=== PATIENT | male | born 1985 | race Caucasian/White ===

== ENCOUNTER → 2017-01-06 | Outpatient (CLI) | payer OTHER ==
--- NOTE | 2017-01-06 16:34 | PN ---
DATE OF SERVICE: 01/06/2017 This patient is a 31-year-old gentleman who has been followed in the sleep center for sleepiness, difficulties waking up after sleep, and loud snoring. Patient was evaluated in the sleep center about 1-1/2 years ago. At that time he was recommended sleep studies, but he did not proceed with a sleep study at that time. At present his sleep schedule is in about the same range as before: On working days from 3 a.m. until noon or 2 p.m., and on weekends from 4 a.m. until 3 p.m., and he gets out of bed around 4:30 p.m. His usual work schedule is from around 9:45 a.m. until 9 p.m. [place] Sleepiness Scale today is 5. Patient usually does not wake up from sleep at all. It is very difficult to wake him up after sleep. He may talk to his family for a few seconds and then he continues to fall asleep and he does not remember episodes of talking to his family. MEDICATIONS: Adderall 20 mg 2 times a day. PHYSICAL EXAMINATION: This is a 31-year-old gentleman without distress. VITAL SIGNS: BP 126/74, HR 97, RR 16. Height 6 feet 2-1/2 inches. Weight 201. BMI 25.4. Neck 15-1/2 inches in circumference. Temperature 98.0. Oxygen saturation at room air 96%. HEENT: PERRLA, EOMI. Evaluation of oropharynx showed tongue protrudes midline. Moderately low position of soft palate. NECK: Supple. No JVD. Thyroid is not palpable. LUNGS: Clear to percussion and to auscultation. Good air exchange. No wheezing or rhonchi. HEART: Some murmurs on aorta and pulmonary after valve replacement. ABDOMEN: Soft and nontender. Bowel sounds are present. No organomegaly appreciated. EXTREMITIES: No clubbing or cyanosis. 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 Cranial nerves 2 to 7 intact. There is no fasciculation or atrophy noted. No focal deficits observed. IMPRESSION: 1. Snoring, moderately low position of soft palate; rule out obstructive sleep apnea, but patient does not wake up from sleep. 2. Difficulties with awakening patient from sleep during the night and also after sleep during the day. 3. Status post aortic valve replacement with patient's pulmonary valve. 4. Status post pulmonary valve replacement with pig valve. 5. Attention deficit disorder. Patient is on treatment with Adderall 20 mg 2 times a day. 6. Sleep delay syndrome possibly associated with patient's work schedule until 9 p.m. 7. Patient has continued smoking for about 11 years now. 8. Patient continues to consume 2 beers at night time. PLAN: 1. Polysomnography for evaluation of patient's breathing during sleep. If polysomnography does not show significant abnormalities of respiration, we will continue with multiple sleep latency test for objective evaluation of patient's sleepiness during the day. No Adderall during the daytime during the testing period. 2. Sleep hygiene with regular time in bed for at least 8 hours. 3. No driving if feeling any sleepiness. 4. Bright sunlight exposure in the morning. No bright light exposure in the evening. Thank you very much for allowing me to participate in the management of your patient. Sincerely, Hu Nuno MD, PhD, FAASM. Diplomat of [place] [employer], Sleep Medicine Board by [employer], [employer]
== END | disposition home or self-care (01) ==
LOC: SLEEP 13:40
PROVIDERS: ATTEND Internal Medicine
DX: G47.33 Obstructive sleep apnea (adult) (pediatric) (principal); Z95.4 Presence of other heart-valve replacement; F98.8 Other specified behavioral and emotional disorders with onset usually occurring in childhood and adolescence; Z79.899 Other long term (current) drug therapy; G47.21 Circadian rhythm sleep disorder, delayed sleep phase type; F17.210 Nicotine dependence, cigarettes, uncomplicated; Z72.89 Other problems related to lifestyle

== ENCOUNTER → 2017-03-10 | Outpatient (CLI) | payer OTHER ==
--- NOTE | 2017-03-10 13:08 | PN ---
DATE OF SERVICE: 03/10/2017 A 32-year-old gentleman who has been followed in the Sleep Center to discuss results of his sleep studies and plan of treatment. 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 When he goes back from work, he does not go to bed until 3 a.m. until 9 a.m. on working days and from 4 a.m. until noon on weekend. According to the patient if he sleeps longer, he may feel worse. Diagnostic sleep study, polysomnogram did not show any significant respiratory abnormalities during the sleep apnea-hypopnea index of 0, oxygen saturation is normal, but patient had only 1% of stage REM. Amount of delta sleep was acceptable, 11.2%. Multiple sleep latency test on the following day showed mean sleep latency 9.8 minutes with one REM sleep documented at 5 nap. MEDICATIONS: Adderall. During physical exam, patient is in no distress. BP 159/90, HR 95, RR 16. Height 6, 2. Weight 208. BMI 26.7. Temperature 97.9. Oxygen saturation at room air 97%,. Practically normal position of the soft palate. HEART: Systolic murmur on apex, aorta and pulmonary artery. NECK: Supple. No JVD, Thyroid is not palpable. LUNGS: Clear to percussion and to auscultation. Good air exchange. No wheezing or rhonchi. ABDOMEN: Soft and nontender. Bowel sounds are present. No organomegaly appreciated. 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 Cranial nerves 2 to 7 intact. There is no fasciculation or atrophy noted. No focal deficits observed. IMPRESSION: 1. No significant respiratory abnormalities have been documented during the sleep study. Normal oxygenation during the sleep, intermittent snoring has been documented. 2. I believe patient has insufficient sleep, sleeps only 6 hours on working days. 3. Sleep delay syndrome. Patient goes to bed at 3 or 4 a.m. practically every day. 4. Alcohol consumption up to 2 drinks of vodka per night which also may disrupt sleep on the second part of the night. 5. History of attention deficit disorder. 6. History of aortic stenosis, status post surgical treatment with replacement of aortic valve and pulmonary valve have been replaced with a donor valve. PLAN: 1. As much as possible exposure to the sunlight in the morning after awakenings at 9 a.m. Preferably go outside for one hour. If there is no sun, patient could use light machine. 2. Patient will try to go to be earlier at 11 p.m. every night. 3. No bright light exposure in the evening. 4. No driving if feeling any sleepiness. 5. Slowly decrease amount of alcohol at nighttime. Thank you very much for referring this patient for evaluation. Sincerely, Hu Nuno MD, PhD, FAASM Diplomat of [place] [employer], Sleep Medicine Board by [place] [employer] Motorcycle Riding Instructor of [facility] [place]
== END | disposition home or self-care (01) ==
LOC: SLEEP 11:27
PROVIDERS: ATTEND Internal Medicine
DX: G47.33 Obstructive sleep apnea (adult) (pediatric) (principal); G47.21 Circadian rhythm sleep disorder, delayed sleep phase type; F98.8 Other specified behavioral and emotional disorders with onset usually occurring in childhood and adolescence; Z79.899 Other long term (current) drug therapy

== ENCOUNTER 2017-03-12 15:22 | Emergency (ER) | payer OTHER ==
[2017-03-12] MEDS ORDERED: ACETAMINOPHEN TAB 325 MG TAB PO STA (15:52)
[2017-03-12] MEDS ORDERED: SODIUM CHLORIDE 0.9% 500 ML IV STA (15:52)
--- NOTE | 2017-03-12 15:58 | ED ---
General Adult HPI - General Chief complaint: Upper Respiratory Infection Stated complaint: Sore throat/Cough Time Seen by Provider: 03/12/17 15:42 Source: patient, family, RN notes reviewed Mode of arrival: ambulatory Limitations: no limitations - History of Present Illness Initial comments: Chief complaint history of present illness this is a 32-year-old male here with family. The patient reports 7 days ago started off with left earache, and a cough the phlegm is slightly dark at that time but has since subsided. For 2 days of sore throat. Cough is ongoing for 4 days now. Generally fatigued muscle aches and pains nausea today but no vomiting or diarrhea. - Related Data Home Medications Medication Instructions Recorded Confirmed Dextroamphetamine/Amphetamine 20 mg PO BID 03/12/17 03/12/17 [Adderall] Previous Rx's Medication Instructions Recorded Levofloxacin [Levaquin] 500 mg PO DAILY #6 tab 03/12/17 Allergies Allergy/AdvReac Type Severity Reaction Status Date / Time No Known Allergies Allergy Verified 03/12/17 16:20 Review of Systems ROS Statement: Those systems with pertinent positive or pertinent negative responses have been documented in the HPI. Review of systems no complaint of visual acuity changes or headache at this time mild sore throat. No stiff neck. Coughing for 4 days. Without be productive at this time no abdominal pain no nausea earlier but no vomiting. No diarrhea. No rashes. Generalized muscle aches and pains. Patient did not can a flu shot this year. 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 All systems were reviewed past medical problems aortic stenosis. Surgeries include the pulmonary valve was harvested to replace the aortic valve and he had a donated valve for his pulmonary valve. Surgery was 16 years ago. The patient' s family history is negative for cancers. Other surgeries include having had a pin placed in his right hand for a boxer's fracture. His ALLERGIES are seasonal only. He does smoke strongly encouraged to stop drinks alcohol socially. ROS Other: All systems not noted in ROS Statement are negative. Past Medical History Past Medical History: No Reported History Additional Past Medical History / Comment(s): aortic stenosis History of Any Multi-Drug Resistant Organisms: None Reported Past Surgical History: No Surgical Hx Reported Past Psychological History: No Psychological Hx Reported Smoking Status: Current every day smoker Past Alcohol Use History: Daily Past Drug Use History: None Reported General Exam - General Exam Comments Initial Comments: General: The patient is awake and alert, in no distress, complains not feeling well muscle aches and pains. Vital signs shows temperature 99.0 pulse 111 respiratory rate 16 pulse ox 99% room air blood pressure 155/82 Eye: Pupils are equal, round and reactive to light, extra-ocular movements are intact ; there is normal conjunctiva bilaterally. No signs of icterus. Ears, nose, mouth and throat: There are moist mucous membranes and no oral lesions. Minimal redness, no exudate. Neck: The neck is supple, there is no tenderness, no anterior cervical lymphadenopathy. No complaint of neck stiffness. Cardiovascular: Chronic heart rate, 111.. Patient has a loud systolic murmur over the mitral valve area. Respiratory: Lungs are clear to auscultation, respirations are non-labored, breath sounds are equal. No wheezes, stridor, rales, or rhonchi. Gastrointestinal: Soft, non-distended, non-tender abdomen without masses or organomegaly noted. There is no rebound or guarding present. No CVA tenderness. Bowel sounds are unremarkable. Back: There is no tenderness to palpation in the midline. There is no obvious deformity. No rashes noted. Musculoskeletal: Normal ROM, no tenderness, There is no pedal edema. There is no calf tenderness or swelling. Sensation intact. Pulses equal bilaterally 2+. Neurological: No neuro deficits Skin: Skin is warm and dry and no rashes or lesions are noted. Limitations: no limitations Course Vital Signs 03/12/17 03/12/17 03/12/17 15:33 16:33 16:35 Temperature 99.0 F 100.1 F H Pulse Rate 111 H 104 H Respiratory 16 18 18 Rate Blood Pressure 155/82 130/79 O2 Sat by Pulse 99 97 Oximetry Medical Decision Making - Medical Decision Making Medical decision making; patient's white count is 10.6 hemoglobin 16 hematocrit of 46 with a potassium 4.2. BUN 10 creatinine 1.04 the GFR greater than 60. Glucose 121 influenza AB reported to be negative. Chest x-ray was done and reviewed by radiologist his impression is a median sternotomy wires are present. Heart is normal size. Pulmonary vasculature within normal limits. There is focal opacity at the posterior base of the lateral view. No pleural effusion. Focal posterior basilar opacity on the lateral view could represent early pneumonia. As read by Dr. Khoury The patient will be placed on Levaquin 500 one per day for the next 7 days. Told to increase fluids use Tylenol for fever. And follow-up with his family physician. - Lab Data Result diagrams: 03/12/17 16:30 03/12/17 16:30 Lab Results 03/12/17 03/12/17 03/12/17 Range/Units 16:30 16:30 16:30 WBC 10.6 (3.8-10.6) k/uL RBC 4.93 (4.30-5.90) m/uL Hgb 16.1 (13.0-17.5) gm/dL Hct 46.5 (39.0-53.0) % MCV 94.3 (80.0-100.0) fL MCH 32.8 (25.0-35.0) pg MCHC 34.7 (31.0-37.0) g/dL RDW 13.6 (11.5-15.5) % Plt Count 214 (150-450) k/uL Neutrophils % 82 % Lymphocytes % 11 % Monocytes % 4 % Eosinophils % 2 % Basophils % 0 % Neutrophils # 8.7 H (1.3-7.7) k/uL Lymphocytes # 1.1 (1.0-4.8) k/uL Monocytes # 0.4 (0-1.0) k/uL Eosinophils # 0.3 (0-0.7) k/uL Basophils # 0.0 (0-0.2) k/uL Sodium 138 (137-145) mmol/L Potassium 4.2 (3.5-5.1) mmol/L Chloride 100 (98-107) mmol/L Carbon Dioxide 27 (22-30) mmol/L Anion Gap 11 mmol/L BUN 10 (9-20) mg/dL Creatinine 1.04 (0.66-1.25) mg/dL Est GFR (MDRD) Af Amer >60 (>60 ml/min/1.73 sqM) Est GFR (MDRD) Non-Af >60 (>60 ml/min/1.73 sqM) Glucose 121 H (74-99) mg/dL Calcium 9.9 (8.4-10.2) mg/dL Influenza Type A RNA Not Detected (Not Detectd) Influenza Type B (PCR) Not Detected (Not Detectd) Disposition Clinical Impression: Pneumonia Disposition: HOME SELF-CARE Condition: Fair Instructions: Community Acquired Pneumonia (ED) Prescriptions: Levofloxacin [Levaquin] 500 mg PO DAILY #6 tab Referrals: Yan Hartman MD [Primary Care Provider] - 1-2 days Time of Disposition: 17:20
[2017-03-12 16:34] VITALS: RESP 18
[2017-03-12 16:43] LABS: Basophils % (A) 0 %; CH 33.8; Eosinophils # (A) 0.3 k/uL (0-0.7); Eosinophils % (A) 2 %; HCT 46.5 % (39.0-53.0); HDW 2.71; HGB 16.1 gm/dL (13.0-17.5); Luc # (Auto) 0.11; Luc % (Auto) 1; Lymphocytes # (A) 1.1 k/uL (1.0-4.8); Lymphocytes % (A) 11 %; MCH 32.8 pg (25.0-35.0); MCHC 34.7 g/dL (31.0-37.0); MCV 94.3 fL (80.0-100.0); Mean Platelet Volume 6.6; Monocytes # (A) 0.4 k/uL (0-1.0); Monocytes % (A) 4 %; Neutrophils # (A) 8.7 k/uL (1.3-7.7); Neutrophils % (A) 82 %; RBC 4.93 m/uL (4.30-5.90); RDW 13.6 % (11.5-15.5); WBC 10.6 k/uL (3.8-10.6); WBC (Perox) 9.85
[2017-03-12 16:52] LABS: Anion Gap 11 mmol/L; Blood Urea Nitrogen 10 mg/dL (9-20); Calcium 9.9 mg/dL (8.4-10.2); Carbon Dioxide 27 mmol/L (22-30); Chloride 100 mmol/L (98-107); Glucose 121 mg/dL (74-99); Non-African American GFR(MDRD) >60 (>60 ml/min/1.73 sqM); Potassium 4.2 mmol/L (3.5-5.1); Sodium 138 mmol/L (137-145)
--- NOTE | 2017-03-12 16:55 | XR ---
EXAMINATION TYPE: XR chest 2V DATE OF EXAM: 03/12/2017 4:40 PM COMPARISON: None HISTORY: 32-year-old male with fever and cough TECHNIQUE: PA and lateral views FINDINGS: Median sternotomy wires are present. Heart is normal size. Pulmonary vasculature within normal limits . There is focal opacity at the posterior base on the lateral view. No pleural effusion. IMPRESSION: Focal posterior basilar opacity on the lateral view could represent early pneumonia.
[2017-03-12] MEDS ORDERED: LEVOFLOXACIN 500 MG TAB PO STA (17:18)
[2017-03-12 17:35] VITALS: BP 145/75; PULSE 96; TEMP 99.9
== END 2017-03-12 17:35 | disposition home or self-care (01) ==
LOC: EC 15:22
DX: J18.9 Pneumonia, unspecified organism (principal); R11.0 Nausea; F17.200 Nicotine dependence, unspecified, uncomplicated; Z79.899 Other long term (current) drug therapy
CPT/HCPCS: 36415; 71020; 80048; 85025; 87502; 96360; 99283

== ENCOUNTER → 2017-08-30 | Outpatient (CLI) | payer OTHER ==
--- NOTE | 2017-08-31 12:34 | ECHOF ---
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 This was a technically adequate study. The left ventricular size is normal. There is mild concentric left ventricular hypertrophy. There is moderate global hypokinesis of LV . Overall left ventricular systolic function is mild-moderate ly impaired with, an EF between 40 - 45 %. The right ventricle is normal in size and function. Normal LA size by volume 22+/-6 ml/m2. The right atrium is normal in size. The aortic valve is trileaflet and appears structurally normal. There is ubzzzvkl-[id number]-[id number] aortic regurgitation. The aortic pressure half-time by doppler is 476ms. The mitral valve is normal. Mild mitral regurgitation is present. Mild tricuspid regurgitation present. Right ventricular systolic pressure is normal at < 35 mmHg. There is no evidence of pulmonary hypertension. The pulmonic valves are thickened with mildly decreased excursion. Mild pulmonic stenosis. The aortic root and ascending aorta are dilated measuring up to 5.4 cm. Normal inferior vena cava with normal inspiratory collapse consistent with estimated right atrial pre ssure of 5 mmHg. There is no pericardial effusion. CONCLUSIONS -------- 1. Sinus rhythm. 2. This was a technically adequate study. 3. There is mild concentric left ventricular hypertrophy. 4. There is moderate global hypokinesis of LV . 5. Overall left ventricular systolic function is mild-moderately impaired with, an EF between 40 - 45 %. 6. Normal LA size by volume 22+/-6 ml/m2. 7. The aortic valve is trileaflet and appears structurally normal. 8. There is rnmlnaki-cv-jdfkys aortic regurgitation. 9. Mild mitral regurgitation is present. 10. Mild tricuspid regurgitation present. 11. Right ventricular systolic pressure is normal at < 35 mmHg. 12. The pulmonic valves are thickened with mildly decreased excursion. 13. Mildpulmonic stenosis. 14. The aortic root and ascending aorta are dilated measuring up to 5.4 cm. 15. There is no pericardial effusion. MOISTURE METER READER: Earl Tobin RDCS
--- NOTE | 2017-08-31 13:20 | XR ---
Two-view spine HISTORY: Back pain Frontal and lateral views of the cervical, thoracic, lumbar spine submitted on a total of 9 images Correlation to chest x-ray 03/12/2017 Patient is post median sternotomy. Cervical, thoracic, lumbar vertebral bodies show preserved height, alignment, and bone mineralization. Mild loss of disc height L5-S1. Question some abnormal thickenin g of the paratracheal stripe on the right is stable. IMPRESSION: Loss of disc height L5-S1. Post median sternotomy. Stable paratracheal density.
== END | disposition home or self-care (01) ==
LOC: RADECHMAIN 16:39
PROVIDERS: ATTEND Family Medicine
DX: I35.1 Nonrheumatic aortic (valve) insufficiency (principal); I34.0 Nonrheumatic mitral (valve) insufficiency; I07.1 Rheumatic tricuspid insufficiency; I77.819 Aortic ectasia, unspecified site; M53.87 Other specified dorsopathies, lumbosacral region; Z98.890 Other specified postprocedural states
CPT/HCPCS: 72082; 93306

== ENCOUNTER 2020-02-28 21:25 | Emergency (ER) | payer OTHER ==
[2020-02-28 21:29] VITALS: TEMP 98
--- NOTE | 2020-02-28 22:01 | ED ---
Psych HPI - General Source: police Mode of arrival: ambulatory <Mattie Ahuja - Last Filed: 02/29/20 01:47> <Krish Mendez - Last Filed: 02/29/20 05:19> - General Chief Complaint: Psychiatric Symptoms Stated Complaint: Mental Health Time Seen by Provider: 02/28/20 21:41 - History of Present Illness Initial Comments: Patient is a 35-year-old male, presenting to the emergency department with police escort for psychiatric evaluation. Patient states he broke up with his girlfriend one week ago and has been depressed since. He does admit to drinking nightly. He has been drinking today. He states he no longer wants to live wants to kill himself. He does not have a plan. He denies any homicidal thoughts. He denies any recent fever, chills. He denies any pain anywhere. He denies taking any medications. Denies any other drug use. He has no other complaints at this time. (Mattie Ahuja) - Related Data Home Medications Medication Instructions Recorded Confirmed Dextroamphetamine/Amphetamine 20 mg PO BID 03/12/17 03/12/17 [Adderall] Previous Rx's Medication Instructions Recorded Levofloxacin [Levaquin] 500 mg PO DAILY #6 tab 03/12/17 Allergies Allergy/AdvReac Type Severity Reaction Status Date / Time No Known Allergies Allergy Verified 02/28/20 21:31 Review of Systems ROS Other: All systems not noted in ROS Statement are negative. <Mattie Ahuja - Last Filed: 02/29/20 01:47> ROS Other: All systems not noted in ROS Statement are negative. <Krish Mendez - Last Filed: 02/29/20 05:19> ROS Statement: Those systems with pertinent positive or pertinent negative responses have been documented in the HPI. Past Medical History Past Medical History: No Reported History Additional Past Medical History / Comment(s): aortic stenosis History of Any Multi-Drug Resistant Organisms: None Reported Past Surgical History: No Surgical Hx Reported Additional Past Surgical History / Comment(s): Aortic stenosis repair at 16 years old. Past Psychological History: No Psychological Hx Reported Smoking Status: Current every day smoker Past Alcohol Use History: Daily Past Drug Use History: None Reported <Mattie Ahuja - Last Filed: 02/29/20 01:47> General Exam Limitations: no limitations <Mattie Ahuja - Last Filed: 02/29/20 01:47> - General Exam Comments Initial Comments: GENERAL: Patient appears intoxicated, and in no acute distress. HEAD: Atraumatic, normocephalic. EYES: Pupils equal round and reactive to light, extraocular movements intact, sclera anicteric, conjunctiva are normal. ENT: TMs normal, nares patent, oropharynx clear without exudates. Moist mucous membranes. NECK: Normal range of motion, supple without lymphadenopathy or JVD. LUNGS: Breath sounds clear to auscultation bilaterally and equal. No wheezes rales or rhonchi. HEART: Regular rate and rhythm without murmurs, rubs or gallops. ABDOMEN: Soft, nontender, normoactive bowel sounds. No guarding, no rebound. No masses appreciated. : Deferred EXTREMITIES: Normal range of motion, no pitting or edema. No clubbing or cyanosis. NEUROLOGICAL: Normal speech, normal gait. PSYCH: Normal mood, normal affect. SKIN: Warm, Dry, normal turgor, no rashes or lesions noted. (Mattie Ahuja) Course Vital Signs 02/28/20 02/28/20 21:26 23:34 Temperature 98.0 F Pulse Rate 102 H 103 H Respiratory 18 20 Rate Blood Pressure 175/101 129/74 O2 Sat by Pulse 98 94 L Oximetry Medical Decision Making <Mattie Ahuja - Last Filed: 02/29/20 01:47> - Medical Decision Making Patient is a 35-year-old male here for psychiatric evaluation. He has suicidal thoughts, denies plan. Denies homicidal thoughts. (Mattie Ahuja) Disposition <Mattie Ahuja - Last Filed: 02/29/20 01:47> Is patient prescribed a controlled substance at d/c from ED?: No <Krish Mendez - Last Filed: 02/29/20 05:19> Clinical Impression: Depression, Alcohol use Disposition: HOME SELF-CARE Condition: Fair Instructions (If sedation given, give patient instructions): Depression (ED) Referrals: None,Stated [Primary Care Provider] - 1-2 days
[2020-02-28 23:38] VITALS: RESP 20
[2020-02-29 06:07] VITALS: BP 130/69; PULSE 96
== END 2020-02-29 06:09 | disposition home or self-care (01) ==
LOC: EC 21:25
DX: F32.9 Major depressive disorder, single episode, unspecified (principal); R45.851 Suicidal ideations; Z72.89 Other problems related to lifestyle; F17.200 Nicotine dependence, unspecified, uncomplicated
CPT/HCPCS: 82075; 99285

== ENCOUNTER 2024-05-13 17:31 | Emergency (ER) | payer OTHER ==
[2024-05-13] MEDS ORDERED: DEXTROSE 5% IN WATER 250 ML with AMIODARONE 300 MG IV ONE (17:53)
[2024-05-13] MEDS: NOREPINEPHRINE 32 MG in SODIUM CHLORIDE 0.9% 218 ML IV SCH (18:03)
[2024-05-13 18:10] LABS: Glucose,Whole Blood 382 mg/dL (70-110)
[2024-05-13] MEDS: AMIODARONE 360 MG in DEXTROSE 5% IN WATER 200 ML IV ONE (18:14)
[2024-05-13] MEDS: SODIUM CHLORIDE 0.9% 1,000 ML IV ONE ×3 (18:16→18:29)
[2024-05-13] MEDS: METOPROLOL TARTRATE 5 MG/5 ML VIAL IVP SCH (18:22)
[2024-05-13 18:24] LABS: HCT 45.2 % (39.0-53.0); HGB 14.1 gm/dL (13.0-17.5); Hypochromasia Marked; MCH 32.9 pg (25.0-35.0); MCHC 31.1 g/dL (31.0-37.0); MCV 105.7 fL (80.0-100.0); Macrocytosis Slight; Mean Platelet Volume 8.6; Platelet Count 429 k/uL (150-450); RBC 4.27 m/uL (4.30-5.90); WBC 15.4 k/uL (3.8-10.6)
--- NOTE | 2024-05-13 18:25 | XR ---
EXAMINATION TYPE: XR chest 1V portable DATE OF EXAM: 05/13/2024 6:18 PM CLINICAL INDICATION:Male, 39 years old with history of cardiac arrest COMPARISON: 03/12/2017 TECHNIQUE: XR chest 1V portable Frontal view of the chest. FINDINGS: Lungs/Pleura: There is no evidence of pleural effusion, focal consolidation, or pneumothorax. Pulmonary vascularity: Unremarkable. Heart/mediastinum: Cardiomediastinal silhouette is unremarkable. Musculoskeletal: No acute osseous pathology. Other findings: None Lines/Tubes: Endotracheal tube with distal tip 6.5 cm above the jaron. Nasogastric tube with its distal tip and side-port projecting under the diaphragm. IMPRESSION: No acute cardiopulmonary disease/process.
[2024-05-13 18:35] LABS: ALT 69 U/L (4-49); African American GFR (CKD) 56 (>60 ml/min/1.73 sqM); Albumin 3.9 g/dL (3.5-5.0); Alcohol <10 mg/dL; Anion Gap 25 mmol/L; Blood Urea Nitrogen 16 mg/dL (9-20); Calcium 11.7 mg/dL (8.4-10.2); Carbon Dioxide 12 mmol/L (22-30); Chloride 104 mmol/L (98-107); Glucose 438 mg/dL (74-99); Non-African American GFR(CKD) 49 (>60 ml/min/1.73 sqM); Sodium 141 mmol/L (137-145); Total Bilirubin 0.8 mg/dL (0.2-1.3); Total Protein 6.5 g/dL (6.3-8.2)
[2024-05-13 18:43] LABS: NT-Pro-B-Type Natriuretic Pept 697 pg/mL
[2024-05-13 18:48] LABS: Appearance,Urine Cloudy (Clear); Bilirubin,Urine Negative (Negative); Blood,Urine Moderate (Negative); Color,Urine Yellow; Glucose,Urine (UA) Negative (Negative); Hyaline Casts,Urine 21 /lpf (0-2); Ketones,Urine Negative (Negative); Leukocyte Esterase,Urine Negative (Negative); Mucus,Urine Many /hpf; Nitrite,Urine Negative (Negative); Protein,Urine 2+ (Negative); RBC,Urine 93 /hpf (0-5); Specific Gravity,Urine 1.028 (1.001-1.035); Squamous Epithelial Cell,Urine 1 /hpf (0-4); Urobilinogen,Urine <2.0 mg/dL (<2.0); WBC,Urine 9 /hpf (0-5)
[2024-05-13 18:50] LABS: Cocaine Screen,Urine Not Detected (NotDetected); Opiate Screen,Urine Not Detected (NotDetected); Phencyclidine Screen,Urine Not Detected (NotDetected); Urn Cannabinoid Scrn Detected (NotDetected)
[2024-05-13 18:51] LABS: Amphetamine Screen,Urine Detected (NotDetected); Barbiturate Screen,Urine Not Detected (NotDetected); Benzodiazepines Screen,Urine Detected (NotDetected); Methadone Screen, Urine Not Detected (NotDetected); Oxycodone Screen, Urine Not Detected (NotDetected); Tricyclic Antidepressant,Urine Not Detected (NotDetected)
[2024-05-13 18:53] LABS: INR 1.2 (<1.2); Partial Thromboplastin Time 28.2 sec (22.0-30.0); Prothrombin Time 12.7 sec (10.0-12.5)
[2024-05-13 19:10] LABS: AST 75 U/L (17-59); Alkaline Phosphatase 45 U/L (38-126); Potassium 5.3 mmol/L (3.5-5.1)
[2024-05-13] MEDS: ESMOLOL DRIP BOLUS FROM BAG 1 MCG SOLN IV STA (19:16)
--- NOTE | 2024-05-13 19:28 | CT ---
EXAMINATION TYPE: CT brain wo con CT DLP: 3381.8 mGycm, Automated exposure control for dose reduction was used. DATE OF EXAM: 05/13/2024 7:15 PM COMPARISON: None. CLINICAL INDICATION:Male, 39 years old with history of Altered mental status, cardiac arrest. TECHNIQUE: Brain: Axial CT images of the brain were obtained with coronal and sagittal reformats created and rev iewed. Contrast used: None. Oral contrast used: None. FINDINGS: Brain: Extra-axial spaces: No abnormal extra-axial fluid collections. Ventricular system: Within normal limits Cerebral parenchyma: No acute intraparenchymal hemorrhage or mass effect. The traylor-white junction is well differentiated. Cerebellum: Unremarkable. Mass effect: No evidence of midline shift. Intracranial vasculature: unremarkable Soft tissues: Normal. Calvarium/osseous structures: No depressed skull fracture. Paranasal sinuses and mastoid air cells: Mild scattered paranasal sinus disease. Visualized orbits: Orbital contents are intact. IMPRESSION: No acute intracranial process. Traylor-white matter differentiation is maintained.
--- NOTE | 2024-05-13 19:32 | CT ---
EXAMINATION TYPE: CT chest angio for PE CT DLP: 3381.8 mGycm, Automated exposure control for dose reduction was used. DATE OF EXAM: 05/13/2024 7:15 PM COMPARISON: 05/13/2024 CLINICAL INDICATION:Male, 39 years old with history of cardiac arrest; cardiac arrest. TECHNIQUE/CONTRAST: CTA scan of the thorax is performed with IV Contrast, patient injected with 100ml mL of Isovue 370, M IP images are created and reviewed these are created on a separate workstation.. FINDINGS: Pulmonary Artery: There is no evidence for a filling defect within the pulmonary vasculature to sugge st acute pulmonary embolism. The pulmonary artery is dilated measuring up to 34 mm Lungs/Pleura: Lef t lower lobe consolidation with bronchovascular crowding most compatible with atelectasis. Airspace o pacities are seen in the left upper lung. No Evidence of focal consolidation, pleural effusion or pne umothorax. Airway: Large airways are patent. Endotracheal tube terminate above the jaron. Heart: The heart is mildly enlarged for size. Atherosclerosis of the arterial vasculature. Vasculature: Aortic root measures up to 6.1 cm.. Ascending thoracic aorta is ectatic measuring up to 46 mm. The pulmonary trunk is dilated measuring up to 34 mm Mediastinum: No gross evidence of adenopathy. Nasogastric tube terminating in the gastric lumen. Musculoskeletal: There is cortical buckling of a few anterior ribs suggestive of fracture or possibly from CPR. Sternotomy wires are present. Soft Tissues/lymph nodes: Unremarkable. Lower neck: No significant findings. Upper Abdomen: No significant findings. IMPRESSION: 1. No evidence of pulmonary embolism. 2. Left lung consolidation changes possibly due to atelectasis in the lung base and airspace disease in the left upper lung.. 3. 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 4. Ascending thoracic aorta ectasia up to 46 mm. 5. Cortical buckling of a few anterior ribs suggestive of fracture, possibly from CPR.
[2024-05-13 19:34] LABS: ABG Base Excess -8.7 mmol/L; ABG HCO3 19 mmol/L (21-25); ABG Oxygen Saturation 99.4 % (94-97); ABG PCO2 48 mmHg (35-45); ABG PH 7.21 (7.35-7.45); ABG PO2 170 mmHg (83-108); ABG TCO2 21 mmol/L (19-24); Allen Test Performed? Yes
[2024-05-13 19:35] LABS: Band Neutrophils % 1 %; Eosinophils # (M) 0.15 k/uL (0-0.7); Lymphocytes # (M) 6.78 k/uL (1.0-4.8); Monocytes # (M) 1.23 k/uL (0-1.0); Neutrophils % (M) 46 %; Nucleated Red Blood Cells 0 /100 WBC (0-0); Total Cells Counted 100
[2024-05-13 19:36] LABS: Hypochromasia (M) Present
[2024-05-13] MEDS ORDERED: PNEUMONIA PROTOCOL UTILIZED 1 EACH MISC PO PRN (19:37)
--- NOTE | 2024-05-13 19:38 | CT ---
EXAMINATION TYPE: CT abdomen pelvis w con CT DLP: 3381.8 mGycm, Automated exposure control for dose reduction was used. DATE OF EXAM: 05/13/2024 7:15 PM COMPARISON: CT chest same day CLINICAL INDICATION:Male, 39 years old with history of cardiac arrest; cardiac arrest. [id number]/100ml D LP 3381.8 scanned by PK TECHNIQUE: Axial CT abdomen pelvis w con;Sagittal and coronal reformats were created on a separate w orkstation. Contrast used:100ml mL of Isovue 370 with IV Contrast, (none if empty) Oral contrast used: without Oral Contrast (none if empty) FINDINGS: ABDOMEN LIVER: Unremarkable GALLBLADDER AND BILE DUCTS: Circumferential wall thickening of the gallbladder lumen which is incompl etely distended measuring up to 10 mm. PANCREAS: Unremarkable. SPLEEN: Unremarkable. ADRENAL GLANDS: Unremarkable. KIDNEYS AND URETERS: No evidence of hydronephrosis or renal calculus. The ureters are unremarkable. PELVIS BLADDER: Rankin catheter in place. REPRODUCTIVE: Unremarkable. ABDOMEN & PELVIS STOMACH AND BOWEL: No evidence of bowel obstruction. Nasogastric tube terminates in the stomach. The appendix is normal. PERITONEUM/RETROPERITONEUM: No evidence of pneumoperitoneum or free fluid. VASCULATURE: No evidence of aortic aneurysm. MUSCULOSKELETAL: No acute osseous abnormalities LYMPH NODES: No gross evidence for lymphadenopathy. SOFT TISSUE/ABDOMINAL WALL: Unremarkable IMPRESSION: 1. Circumferential wall thickening of the gallbladder correlate for signs and symptoms of acute chol ecystitis. Findings could be secondary to possible patient's history of heart failure. 2. Rankin catheter in place. 3. See dedicated CT chest for findings in the lungs. 4. Nasogastric tube terminating in appropriate position.
--- NOTE | 2024-05-13 19:44 | P.CRDCN ---
History of Present Illness History of present illness: This is Dr. 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 he was a teenager PEA on admission in the ER but he responded to treatment very quickly Continues to have recurrent episodes of VF Initially started on IV amiodarone but I recommended IV pushes of metoprolol After a few IV pushes of metoprolol 2.5 mg, VF is now suppressed 2 g of IV magnesium also given D-dimer is elevated and final CTA result awaited PLAN: Repeated injections of IV metoprolol in aliquots of 2.5 mg every 10 to 15 minutes or more frequently if possible to suppress recurrent VF Continue IV amiodarone Supportive care This patient has a very poor prognosis given the extent of LV scarring and now with cardiac arrest and recurrent VF and extensive scarring of the left ventricle transfer tech I would recommend transfer to a tertiary care center where cardiac transplant facilities are available This patient should be evaluated quickly and urgently for advanced nonpharmacologic heart failure therapies I anticipate that he will continue to have recurrent episodes of VT VF HPI 39-year-old male patient who had an out of field cardiac arrest. CPR was initiated. EMS arrived. He received at least 2 shocks on the field, defibrillation When he arrived in the ER he was in PEA ACLS protocol was followed, 3 rounds of epinephrine given followed by norepinephrine drip He was experiencing recurrent episodes of VF and therefore IV amiodarone was started His past history consists of aortic stenosis status post Ross procedure when he was around 15 years of age Obstructive sleep apnea several years back Reduced LV systolic function of about 40-45% in [id number] based upon echo here Twelve-lead EKG shows underlying atrial fibrillation with a very wide QRS right bundle branch block morphology with left anterior fascicular block with a QRS width of greater than 200 ms Significant QRS fractionation noted in virtually all 12 leads The QRS fractionation is in the second half of the QRS The initial portion of the QRS shows rapid activation whereas the latter half of each QRS is broad wide and fractionated Likely extensive myocardial scarring with severely reduced LV systolic function Initiation of VF with polymorphic PVCs Initiation of PVCs with a post PVC pause of less than 600 ms, followed by a short coupled, PVC landing on the T wave resulting in induction of VF The coupling interval of the initiating PVC beat is around 320 ms ROS: No fever chills or rigors, no cough, phlegm or expectoration, no nausea, vomiting or diarrhea, no hematuria, dysuria, no musculoskeletal complaints, no strokes or seizures, no skin lesions. EXAMINATION: Pupils sluggishly reactive 3 mm Ejection systolic murmur over the pulmonic area with a single second heart sound over the pulmonic area Soft abdomen Blood pressure on very low-dose pressor Pulse rate 110 beats a minute afebrile REVIEW OF LABS, ECG & MEDICAL DATA Patient is on Adderall Marijuana positive Past Medical History Past Medical History: No Reported History Additional Past Medical History / Comment(s): aortic stenosis History of Any Multi-Drug Resistant Organisms: None Reported Past Surgical History: No Surgical Hx Reported Additional Past Surgical History / Comment(s): Aortic stenosis repair at 16 years old. Past Psychological History: No Psychological Hx Reported Past Alcohol Use History: Daily Past Drug Use History: None Reported Medications and Allergies Home Medications Medication Instructions Recorded Confirmed Type Albuterol Inhaler [Ventolin Hfa 2 puff INHALATION RT-Q4H PRN 05/13/24 05/13/24 History Inhaler] Dextroamphetamine/Amphetamine 30 mg PO BID 05/13/24 05/13/24 History [Adderall] Naltrexone HCl 50 mg PO DAILY 05/13/24 05/13/24 History Thiamine [Vitamin B-1] 100 mg PO DAILY 05/13/24 05/13/24 History Tiotropium 2.5 Mcg/Puff [Spiriva 2 puff INHALATION RT-DAILY 05/13/24 05/13/24 History Respimat 2.5 Mcg] Allergies Allergy/AdvReac Type Severity Reaction Status Date / Time No Known Allergies Allergy Verified 05/13/24 18:50 Physical Exam Vitals: Vital Signs Temp Pulse Resp BP Pulse Ox FiO2 05/13/24 19:39 60 05/13/24 19:13 112 H 123/85 05/13/24 19:03 100 05/13/24 19:00 18 123/87 05/13/24 18:47 98.2 F 103 H 27 H 125/78 97 05/13/24 18:25 96.8 F L 85 136/76 88 L 05/13/24 18:10 76/45 05/13/24 18:05 63/39 05/13/24 18:03 83 75/38 05/13/24 17:59 67 18 112/54 05/13/24 17:47 100 05/13/24 17:45 0 L 0 L 05/13/24 17:43 108/56 Intake and Output 05/13/24 05/13/24 05/13/24 06:59 14:59 22:59 Intake Total 3.643 Balance 3.643 Intake: Intake, IV Titration 3.643 Amount Norepinephrine 32 mg In 3.643 Sodium Chloride 0.9% 218 ml @ 0.03 MCG/KG/MIN 0. 984 mls/hr IV .Q24H [facility] Rx#:[id number] Other: Weight 70 kg Results 05/13/24 17:30 05/13/24 17:30 Cardiac Enzymes 05/13/24 05/13/24 Range/Units 17:30 17:30 AST 75 H (17-59) U/L Troponin I 0.013 (0.000-0.034) ng/mL Coagulation 05/13/24 Range/Units 18:20 PT 12.7 H (10.0-12.5) sec APTT 28.2 (22.0-30.0) sec CBC 05/13/24 Range/Units 17:30 WBC 15.4 H (3.8-10.6) k/uL RBC 4.27 L (4.30-5.90) m/uL Hgb 14.1 (13.0-17.5) gm/dL Hct 45.2 (39.0-53.0) % Plt Count 429 (150-450) k/uL Comprehensive Metabolic Panel 05/13/24 Range/Units 17:30 Sodium 141 (137-145) mmol/L Potassium 5.3 H (3.5-5.1) mmol/L Chloride 104 (98-107) mmol/L Carbon Dioxide 12 L (22-30) mmol/L BUN 16 (9-20) mg/dL Creatinine 1.73 H (0.66-1.25) mg/dL Glucose 438 H (74-99) mg/dL Calcium 11.7 H (8.4-10.2) mg/dL AST 75 H (17-59) U/L ALT 69 H (4-49) U/L Alkaline Phosphatase 45 (38-126) U/L Total Protein 6.5 (6.3-8.2) g/dL Albumin 3.9 (3.5-5.0) g/dL Current Medications Generic Name Dose Route Start Last Admin Trade Name Freq PRN Reason Stop Dose Admin Norepinephrine Bitartrate 32 250 mls @ 0.984 mls/hr 05/13/24 18:00 05/13/24 19:10 mg/ Sodium Chloride IV 0.07 mcg/kg/min .Q24H [facility] 2.297 mls/hr Titration Protocol 0.03 MCG/KG/MIN Amiodarone HCl 360 mg/ 200 mls @ 33.333 mls/hr 05/13/24 17:55 05/13/24 18:14 Dextrose/Water IV 05/13/24 23:54 1 mg/min .Q6H ONE 33.333 mls/hr Administration Protocol 1 MG/MIN Amiodarone HCl 450 mg/ 250 mls @ 16.667 mls/hr 05/13/24 23:45 Dextrose/Water IV 05/14/24 17:44 .Q15H [facility] Protocol 0.5 MG/MIN Sodium Chloride 1,000 mls @ 100 mls/hr 05/13/24 18:06 05/13/24 18:29 Saline 0.9% IV 05/14/24 04:05 75 mls/hr .Q10H ONE Administration Propofol 1,000 mg/ IV Solution 100 mls @ 6.3 mls/hr 05/13/24 18:30 05/13/24 18:27 IV 10 mcg/kg/min .[id number] [facility] 4.2 mls/hr Administration Protocol 15 MCG/KG/MIN Azithromycin 500 mg/ Sodium 250 mls @ 250 mls/hr 05/13/24 19:37 Chloride IVPB 05/13/24 20:36 ONCE STA Protocol Piperacillin Sod/Tazobactam 100 mls @ 200 mls/hr 05/13/24 19:37 Sod 3.375 gm/ Sodium Chloride IVPB 05/13/24 20:06 ONCE STA Metoprolol Tartrate 2.5 mg 05/13/24 18:15 05/13/24 19:17 Metoprolol Tartrate 5 Mg/5 Ml Vial IVP 2.5 mg Q5M [facility] Administration Miscellaneous Information 1 each 05/13/24 19:37 Pneumonia Protocol Utilized 1 Each Misc PO ONCE PRN Per Protocol Intake and Output 05/13/24 05/13/24 05/13/24 06:59 14:59 22:59 Intake Total 3.643 Balance 3.643 Intake: Intake, IV Titration 3.643 Amount Norepinephrine 32 mg In 3.643 Sodium Chloride 0.9% 218 ml @ 0.03 MCG/KG/MIN 0. 984 mls/hr IV .Q24H [facility] Rx#:[id number] Other: Weight 70 kg Patient Weight 05/14/24 06:59 Weight 70 kg 05/13/24 17:30 05/13/24 17:30
--- NOTE | 2024-05-13 20:29 | ED ---
General Adult HPI - General Chief complaint: Cardiac Arrest/CPR Stated complaint: Cardiac Arrest Time Seen by Provider: 05/13/24 17:31 Source: EMS Mode of arrival: EMS - History of Present Illness Initial comments: Patient is a 39-year-old male who presents emergency department complaining of cardiac arrest. Patient was witnessed cardiac arrest with immediate bystander CPR present at home. Apparently patient was having some shortness of breath walking around a fair another event earlier today when he got home he began playing catch with his son fell like he had to sit down which is when he went to cardiac arrest. EMS arrived and found patient in V-fib and administered 1 defibrillation. They did obtain temporary ROSC however patient went pulseless again and presents emergency department currently pulseless. History remarkable for valvular surgery in the past. Patient originally for cardiac arrest sometime around 1704 based on EMS call time per EMS - Related Data Home Medications Medication Instructions Recorded Confirmed Albuterol Inhaler [Ventolin Hfa 2 puff INHALATION RT-Q4H PRN 05/13/24 05/13/24 Inhaler] Dextroamphetamine/Amphetamine 30 mg PO BID 05/13/24 05/13/24 [Adderall] Naltrexone HCl 50 mg PO DAILY 05/13/24 05/13/24 Thiamine [Vitamin B-1] 100 mg PO DAILY 05/13/24 05/13/24 Tiotropium 2.5 Mcg/Puff [Spiriva 2 puff INHALATION RT-DAILY 05/13/24 05/13/24 Respimat 2.5 Mcg] Allergies Allergy/AdvReac Type Severity Reaction Status Date / Time No Known Allergies Allergy Verified 05/13/24 18:50 Review of Systems ROS Statement: Those systems with pertinent positive or pertinent negative responses have been documented in the HPI. ROS Other: All systems not noted in ROS Statement are negative. Past Medical History Past Medical History: No Reported History Additional Past Medical History / Comment(s): aortic stenosis History of Any Multi-Drug Resistant Organisms: None Reported Past Surgical History: No Surgical Hx Reported Additional Past Surgical History / Comment(s): Aortic stenosis repair at 16 years old. Past Psychological History: No Psychological Hx Reported Past Alcohol Use History: Daily Past Drug Use History: None Reported General Exam - General Exam Comments Initial Comments: General: Unresponsive HEAD: No signs of head trauma EYES: 2 to 3 mm and fixed ENT: Trachea midline. Intubated RESPIRATORY: Auscultate breath sounds bilaterally C/V: Pulseless ABD: Nondistended EXT: No obvious deformities SKIN: No rashes or lesions observed on exposed skin. NEURO: Unresponsive Course Vital Signs 05/13/24 05/13/24 05/13/24 17:43 17:45 17:47 Temperature Pulse Rate 0 L Respiratory 0 L Rate Blood Pressure 108/56 O2 Sat by Pulse Oximetry Fraction of 100 Inspired Oxygen (FIO2) 05/13/24 05/13/24 05/13/24 17:59 18:03 18:05 Temperature Pulse Rate 67 83 Respiratory 18 Rate Blood Pressure 112/54 75/38 63/39 O2 Sat by Pulse Oximetry Fraction of Inspired Oxygen (FIO2) 05/13/24 05/13/24 05/13/24 18:10 18:25 18:47 Temperature 96.8 F L 98.2 F Pulse Rate 85 103 H Respiratory 27 H Rate Blood Pressure 76/45 136/76 125/78 O2 Sat by Pulse 88 L 97 Oximetry Fraction of Inspired Oxygen (FIO2) 05/13/24 05/13/24 05/13/24 19:00 19:03 19:13 Temperature Pulse Rate 112 H Respiratory 18 Rate Blood Pressure 123/87 123/85 O2 Sat by Pulse Oximetry Fraction of 100 Inspired Oxygen (FIO2) 05/13/24 05/13/24 05/13/24 19:21 19:30 19:39 Temperature Pulse Rate 110 H 83 Respiratory 4 L 6 L Rate Blood Pressure 123/85 108/70 O2 Sat by Pulse 78 L 90 L Oximetry Fraction of 60 Inspired Oxygen (FIO2) 05/13/24 05/13/24 05/13/24 19:40 19:50 20:00 Temperature Pulse Rate 81 86 82 Respiratory 36 H 31 H 35 H Rate Blood Pressure 119/55 104/70 O2 Sat by Pulse 100 98 97 Oximetry Fraction of Inspired Oxygen (FIO2) 05/13/24 05/13/24 05/13/24 20:10 20:20 20:30 Temperature Pulse Rate 80 80 85 Respiratory 33 H 24 30 H Rate Blood Pressure 128/45 124/73 108/78 O2 Sat by Pulse 99 99 99 Oximetry Fraction of Inspired Oxygen (FIO2) 05/13/24 05/13/24 05/13/24 20:40 20:50 21:00 Temperature Pulse Rate 86 90 89 Respiratory 31 H 26 H 25 H Rate Blood Pressure 105/86 106/64 104/66 O2 Sat by Pulse 98 97 97 Oximetry Fraction of Inspired Oxygen (FIO2) 05/13/24 05/13/24 05/13/24 21:10 21:20 21:30 Temperature Pulse Rate 90 93 94 Respiratory 24 0 L 0 L Rate Blood Pressure 97/69 97/69 94/63 O2 Sat by Pulse 97 98 98 Oximetry Fraction of Inspired Oxygen (FIO2) 05/13/24 05/13/24 05/13/24 21:40 21:50 22:00 Temperature Pulse Rate 98 96 98 Respiratory 9 L 5 L 30 H Rate Blood Pressure 97/74 90/62 87/61 O2 Sat by Pulse 98 98 98 Oximetry Fraction of Inspired Oxygen (FIO2) 05/13/24 05/13/24 22:28 23:15 Temperature 100.0 F H Pulse Rate 98 89 Respiratory 18 25 H Rate Blood Pressure 86/61 101/60 O2 Sat by Pulse 98 99 Oximetry Fraction of Inspired Oxygen (FIO2) Medical Decision Making - Medical Decision Making Was pt. sent in by a medical professional or institution (CHERRY Giron, INDUSTRIAL GAS SERVICE HELPER, urgent care, hospital, or custodial...) When possible be specific @ -No Did you speak to anyone other than the patient for history (EMS, parent, family, police, friend...)? What history was obtained from this source @ -Spoke with EMS who provided out of patient care including original call at 1704 and presentation here to approximately 1730 with ROSC x 1 in the field but current pulseless activity. Had V-fib activity and was defibrillated once in the field and received 3 epinephrine. Received lidocaine. Discussed with family primarily the as well as patient's mother. They informed me of the history of the Ross procedure when he was a teenager as well as the story of what happened today. Follows up with cardiology at [facility]. Did you review nursing and triage notes (agree or disagree)? Why? @ -I reviewed and agree with nursing and triage notes Were old charts reviewed (outside hosp., previous admission, EMS record, old EKG, old radiological studies, urgent care reports/EKG's, custodial records)? Report findings @ -Old charts reviewed including echo which does show some decreased left ventricular function as well as left ventricular distention as well as history of Ross procedure where they performed a aortic valve repair or replacement with pulmonic valve and then performing a pulmonic valve replacement. This was done when he was a teenager. Differential Diagnosis (chest pain, altered mental status, abdominal pain women, abdominal pain men, vaginal bleeding, weakness, fever, dyspnea, syncope, headache, dizziness, GI bleed, back pain, seizure, CVA, palpatations, mental health, musculoskeletal)? @ -Cardiac arrest, electrolyte abnormality, PE, infection. This list is not all inclusive. EKG interpreted by me (3pts min.). @ -As above X-rays interpreted by me (1pt min.). @ -Chest x-ray shows ET tube 6.5 cm above the jaron but no other obvious acute process. ET tube was advanced [address] interpreted by me (1pt min.). @ -CT brain, negative for acute intracranial process. CT abdomen pelvis negative for any obvious acute process. Thickening of the gallbladder wall but otherwise no other suggestion or suspicion for gallbladder pathology. This could be secondary to patient's cardiac history. CT chest reveals no evidence of PE. Patient does have a dilated aortic root. Possible fracture of some of the anterior ribs from CPR. U/S interpreted by me (1pt. min.). @ -None done What testing was considered but not performed or refused? (CT, X-rays, U/S, labs)? Why? @ -None What meds were considered but not given or refused? Why? @ -None Did you discuss the management of the patient with other professionals (professionals i.e. , PA, INDUSTRIAL GAS SERVICE HELPER, lab, RT, psych nurse, social welfare research worker, distributing clerk, teacher, port patrol officer, case management assistant)? Give summary @ -Discussed at length with Dr. Mcconnell the on-call thermal cutting tracer machine operator who did evaluate the patient at bedside and placed a consult note. There is concern for significant cardiomyopathy based on EKG findings as well as his presentation with the refractory V-fib as well as runs of PVCs. Patient's EKG show QRS fractionation with right bundle branch block as well as left posterior fasci cular block. After discussion with Dr. Mcconnell, suggestive of a severely scarred heart and left ventricle. He would like the patient transferred over concern for need for potential heart transplant if the patient does neurologically improve. Recommended [facility]. He also spoke with He [facility] transfer line and helped with the transfer process.Discussed possible ischemic changes versus cardiomyopathy and is more given his findings are suggestive of cardiomyopathy as there is no obvious findings to suggest acute occlusive ischemic changes at this time. I spoke with the accepting provider Dr. Lundy maintenance carpenter [facility] who accepted the admission. Was smoking cessation discussed for >3mins.? @ -No Was critical care preformed (if so, how long)? @ -Yes, 76 minutes. Multiple phone calls to [facility], other providers, as well as multiple conversations with family members in addition to the over 30 minutes of cardiac arrest management. Were there social determinants of health that impacted care today? How? (Homelessness, low income, unemployed, alcoholism, drug addiction, transportation, low edu. Level, literacy, decrease access to med. care, [facility], rehab)? @ -No Was there de-escalation of care discussed even if they declined (Discuss DNR or withdrawal of care, Hospice)? DNR status @ -No What co-morbidities impacted this encounter? (DM, HTN, Smoking, COPD, CAD, Cancer, CVA, ARF, Chemo, Hep., AIDS, mental health diagnosis, sleep apnea, morbid obesity)? @ -Ross procedure Was patient admitted / discharged? Hospital course, mention meds given and route, prescriptions, significant lab abnormalities, going to [place] and other pertinent info. @ -Patient presents unresponsive in cardiac arrest. ROSC was obtained once in the field and additionally here patient did achieve ROSC a total of 4 additional times including upon arrival. This is over the course between 1730 and 1757. Patient received multiple bicarb, calcium chloride, epi amps here in the department in addition of 3 in the field. We were dealing with refractory V-fib each time the patient lost pulses and patient did receive amiodarone 300 mg, followed by 150 mg, followed by the drip. Received IV fluids. Right femoral central line placed by myself. Patient started on Levophed. ROSC was finally achieved. Postarrest EKG in addition to the other post ROSC EKG shows the QRS fractionization as well as generalized ischemic changes likely from the cardiac arrest. We will continue to monitor. Will obtain generalized workup. Patient received CT brain, chest abdomen pelvis. Vital signs are within acceptable limits on Levophed. I spoke extensively with cardiology throughout the patient's stay and after evaluation of the EKGs as well as presentation is concerning for a severe cardiomyopathy for the patient as the probable cause for the presentation and would like the patient transferred to a higher level of care. Dr. Mcconnell did present bedside and evaluate the patient and provided recommendations including continuing the amiodarone drip, IV fluids, administering magnesium 2 g, as well as pushing IV metoprolol and reducing Levophed as tolerated. IV metoprolol for the PVCs and ectopy. Patient seemed to respond well to these therapies. CT osito ging of the brain, chest abdomen pelvis negative for any obvious acute process other than some rib fractures and possible pneumonia and patient was covered with IV antibiotics. We are weaning the patient off of the IV norepinephrine. Vital signs are remaining stable. Patient's workup for laboratory values remarkable for mild leukocytosis of 15 likely reactive. D-dimer elevated at 28 however patient has no evidence of PE on CT. Patient has an elevated lactic acid of 14.8 Sibley secondary to the prolonged cardiac arrest. Troponin of 0.013. Creatinine elevated 1.73. UDS remarkable for amphetamines however patient is on Adderall. Remainder the workup relatively unremarkable. At this time I updated family members multiple times throughout the patient's stay. We will attempt to transfer to [facility]. They were in agreement this plan. Initial attempts by myself were unsuccessful however after the thermal cutting tracer machine operator Dr. Mcconnell contacted [facility] to help with the transfer pr [facility], patient was excepted as he was able to contact cardiology directly there. I spoke with the accepting maintenance carpenter, Dr. Lundy who accepted the patient. Patient transferred in serious condition. Undiagnosed new problem with uncertain prognosis? @ -No Drug Therapy requiring intensive monitoring for toxicity (Heparin, Nitro, Insulin, Cardizem)? @ -No Were any procedures done? @ -No Diagnosis/symptom? @ -Cardiac arrest likely secondary to cardiomyopathy with concern for disease left ventricle status post ROSC with hypoxic resp failure and vent dependence. Rib fractures. Hypotensive shock secondary to above. Possible pneumonia Acute, or Chronic, or Acute on Chronic? @ -Acute Uncomplicated (without systemic symptoms) or Complicated (systemic symptoms)? @ -Complicated Side effects of treatment? @ -No Exacerbation, Progression, or Severe Exacerbation? @ -No Poses a threat to life or bodily function? How? (Chest pain, [place], [place], pneumonia, PE, COPD, DKA, ARF, appy, cholecystitis, CVA, Diverticulitis, Homicidal, Suicidal, threat to staff... and all critical care pts) @ -Yes - Lab Data Result diagrams: 05/13/24 17:30 05/13/24 17:30 Lab Results 05/13/24 05/13/24 05/13/24 Range/Units 17:30 17:30 17:30 WBC 15.4 H (3.8-10.6) k/uL RBC 4.27 L (4.30-5.90) m/uL Hgb 14.1 (13.0-17.5) gm/dL Hct 45.2 (39.0-53.0) % MCV 105.7 H (80.0-100.0) fL MCH 32.9 (25.0-35.0) pg MCHC 31.1 (31.0-37.0) g/dL RDW 13.0 (11.5-15.5) % Plt Count 429 (150-450) k/uL MPV 8.6 Neutrophils % Not Reportable Neutrophils % (Manual) 46 % Band Neuts % (Manual) 1 % Lymphocytes % Not Reportable Lymphocytes % (Manual) 44 % Monocytes % Not Reportable Monocytes % (Manual) 8 % Eosinophils % Not Reportable Eosinophils % (Manual) 1 % Basophils % Not Reportable Neutrophils # Not Reportable Neutrophils # (Manual) 7.20 (1.3-7.7) k/uL Lymphocytes # Not Reportable Lymphocytes # (Manual) 6.78 H (1.0-4.8) k/uL Monocytes # Not Reportable Monocytes # (Manual) 1.23 H (0-1.0) k/uL Eosinophils # Not Reportable Eosinophils # (Manual) 0.15 (0-0.7) k/uL Basophils # Not Reportable Nucleated RBCs 0 (0-0) /100 WBC Manual Slide Review Performed Hypochromasia Marked Hypochromasia (manual) Present Macrocytosis Slight PT (10.0-12.5) sec INR (<1.2) APTT (22.0-30.0) sec D-Dimer (<0.60) mg/L FEU Sample Site ABG pH (7.35-7.45) ABG pCO2 (35-45) mmHg ABG pO2 (83-108) mmHg ABG HCO3 (21-25) mmol/L ABG Total CO2 (19-24) mmol/L ABG O2 Saturation (94-97) % ABG Base Excess mmol/L Amrit Test FiO2 % Sodium 141 (137-145) mmol/L Potassium 5.3 H (3.5-5.1) mmol/L Chloride 104 (98-107) mmol/L Carbon Dioxide 12 L (22-30) mmol/L Anion Gap 25 mmol/L BUN 16 (9-20) mg/dL Creatinine 1.73 H (0.66-1.25) mg/dL Est GFR (CKD-EPI)AfAm 56 (>60 ml/min/1.73 sqM) Est GFR (CKD-EPI)NonAf 49 (>60 ml/min/1.73 sqM) Glucose 438 H (74-99) mg/dL POC Glucose (mg/dL) (70-110) mg/dL POC Glu Project Manager Process Development ID Lactic Ac Sepsis Rflx Plasma Lactic Acid Tomasz (0.7-2.0) mmol/L Calcium 11.7 H (8.4-10.2) mg/dL Magnesium (1.6-2.3) mg/dL Total Bilirubin 0.8 (0.2-1.3) mg/dL AST 75 H (17-59) U/L ALT 69 H (4-49) U/L Alkaline Phosphatase 45 (38-126) U/L Troponin I 0.013 (0.000-0.034) ng/mL NT-Pro-B Natriuret Pep 697 pg/mL Total Protein 6.5 (6.3-8.2) g/dL Albumin 3.9 (3.5-5.0) g/dL Urine Color Urine Appearance (Clear) Urine pH (5.0-8.0) Ur Specific [place] (1.001-1.035) Urine Protein (Negative) Urine Glucose (UA) (Negative) Urine Ketones (Negative) Urine Blood (Negative) Urine Nitrite (Negative) Urine Bilirubin (Negative) Urine Urobilinogen (<2.0) mg/dL Ur Leukocyte Esterase (Negative) Urine RBC (0-5) /hpf Urine WBC (0-5) /hpf Ur Squamous Epith Cells (0-4) /hpf Hyaline Casts (0-2) /lpf Urine Mucus (None) /hpf Urine Opiates Screen (NotDetected) Ur Oxycodone Screen (NotDetected) Urine Methadone Screen (NotDetected) Ur Barbiturates Screen (NotDetected) U Tricyclic Antidepress (NotDetected) Ur Phencyclidine Scrn (NotDetected) Ur Amphetamines Screen (NotDetected) U Methamphetamines Scrn (NotDetected) U Benzodiazepines Scrn (NotDetected) Urine Cocaine Screen (NotDetected) U Marijuana (THC) Screen (NotDetected) Serum Alcohol <10 mg/dL Influenza Type A (PCR) (Not Detectd) Influenza Type B (PCR) (Not Detectd) RSV (PCR) (Not Detectd) SARS-CoV-2 (PCR) (Not Detectd) 05/13/24 05/13/24 05/13/24 Range/Units 17:30 18:09 18:20 WBC (3.8-10.6) k/uL RBC (4.30-5.90) m/uL Hgb (13.0-17.5) gm/dL Hct (39.0-53.0) % MCV (80.0-100.0) fL MCH (25.0-35.0) pg MCHC (31.0-37.0) g/dL RDW (11.5-15.5) % Plt Count (150-450) k/uL MPV Neutrophils % Neutrophils % (Manual) % Band Neuts % (Manual) % Lymphocytes % Lymphocytes % (Manual) % Monocytes % Monocytes % (Manual) % Eosinophils % Eosinophils % (Manual) % Basophils % Neutrophils # Neutrophils # (Manual) (1.3-7.7) k/uL Lymphocytes # Lymphocytes # (Manual) (1.0-4.8) k/uL Monocytes # Monocytes # (Manual) (0-1.0) k/uL Eosinophils # Eosinophils # (Manual) (0-0.7) k/uL Basophils # Nucleated RBCs (0-0) /100 WBC Manual Slide Review Hypochromasia Hypochromasia (manual) Macrocytosis PT (10.0-12.5) sec INR (<1.2) APTT (22.0-30.0) sec D-Dimer (<0.60) mg/L FEU Sample Site ABG pH (7.35-7.45) ABG pCO2 (35-45) mmHg ABG pO2 (83-108) mmHg ABG HCO3 (21-25) mmol/L ABG Total CO2 (19-24) mmol/L ABG O2 Saturation (94-97) % ABG Base Excess mmol/L Amrit Test FiO2 % Sodium (137-145) mmol/L Potassium (3.5-5.1) mmol/L Chloride (98-107) mmol/L Carbon Dioxide (22-30) mmol/L Anion Gap mmol/L BUN (9-20) mg/dL Creatinine (0.66-1.25) mg/dL Est GFR (CKD-EPI)AfAm (>60 ml/min/1.73 sqM) Est GFR (CKD-EPI)NonAf (>60 ml/min/1.73 sqM) Glucose (74-99) mg/dL POC Glucose (mg/dL) 382 H (70-110) mg/dL POC Glu Project Manager Process Development ID Celestino Carson Lactic Ac Sepsis Rflx Plasma Lactic Acid Tomasz 14.8 H* (0.7-2.0) mmol/L Calcium (8.4-10.2) mg/dL Magnesium (1.6-2.3) mg/dL Total Bilirubin (0.2-1.3) mg/dL AST (17-59) U/L ALT (4-49) U/L Alkaline Phosphatase (38-126) U/L Troponin I (0.000-0.034) ng/mL NT-Pro-B Natriuret Pep pg/mL Total Protein (6.3-8.2) g/dL Albumin (3.5-5.0) g/dL Urine Color Yellow Urine Appearance Cloudy (Clear) Urine pH 6.0 (5.0-8.0) Ur Specific [place] 1.028 (1.001-1.035) Urine Protein 2+ H (Negative) Urine Glucose (UA) Negative (Negative) Urine Ketones Negative (Negative) Urine Blood Moderate H (Negative) Urine Nitrite Negative (Negative) Urine Bilirubin Negative (Negative) Urine Urobilinogen <2.0 (<2.0) mg/dL Ur Leukocyte Esterase Negative (Negative) Urine RBC 93 H (0-5) /hpf Urine WBC 9 H (0-5) /hpf Ur Squamous Epith Cells 1 (0-4) /hpf Hyaline Casts 21 H (0-2) /lpf Urine Mucus Many H (None) /hpf Urine Opiates Screen Not Detected (NotDetected) Ur Oxycodone Screen Not Detected (NotDetected) Urine Methadone Screen Not Detected (NotDetected) Ur Barbiturates Screen Not Detected (NotDetected) U Tricyclic Antidepress Not Detected (NotDetected) Ur Phencyclidine Scrn Not Detected (NotDetected) Ur Amphetamines Screen Detected H (NotDetected) U Methamphetamines Scrn Not Detected (NotDetected) U Benzodiazepines Scrn Detected H (NotDetected) Urine Cocaine Screen Not Detected (NotDetected) U Marijuana (THC) Screen Detected H (NotDetected) Serum Alcohol mg/dL Influenza Type A (PCR) (Not Detectd) Influenza Type B (PCR) (Not Detectd) RSV (PCR) (Not Detectd) SARS-CoV-2 (PCR) (Not Detectd) 05/13/24 05/13/24 05/13/24 Range/Units 18:20 19:30 20:49 WBC (3.8-10.6) k/uL RBC (4.30-5.90) m/uL Hgb (13.0-17.5) gm/dL Hct (39.0-53.0) % MCV (80.0-100.0) fL MCH (25.0-35.0) pg MCHC (31.0-37.0) g/dL RDW (11.5-15.5) % Plt Count (150-450) k/uL MPV Neutrophils % Neutrophils % (Manual) % Band Neuts % (Manual) % Lymphocytes % Lymphocytes % (Manual) % Monocytes % Monocytes % (Manual) % Eosinophils % Eosinophils % (Manual) % Basophils % Neutrophils # Neutrophils # (Manual) (1.3-7.7) k/uL Lymphocytes # Lymphocytes # (Manual) (1.0-4.8) k/uL Monocytes # Monocytes # (Manual) (0-1.0) k/uL Eosinophils # Eosinophils # (Manual) (0-0.7) k/uL Basophils # Nucleated RBCs (0-0) /100 WBC Manual Slide Review Hypochromasia Hypochromasia (manual) Macrocytosis PT 12.7 H (10.0-12.5) sec INR 1.2 H (<1.2) APTT 28.2 (22.0-30.0) sec D-Dimer 28.75 H (<0.60) mg/L FEU Sample Site R radial ABG pH 7.21 L (7.35-7.45) ABG pCO2 48 H (35-45) mmHg ABG pO2 170 H (83-108) mmHg ABG HCO3 19 L (21-25) mmol/L ABG Total CO2 21 (19-24) mmol/L ABG O2 Saturation 99.4 H (94-97) % ABG Base Excess -8.7 mmol/L Amrit Test Yes FiO2 100 % Sodium (137-145) mmol/L Potassium (3.5-5.1) mmol/L Chloride (98-107) mmol/L Carbon Dioxide (22-30) mmol/L Anion Gap mmol/L BUN (9-20) mg/dL Creatinine (0.66-1.25) mg/dL Est GFR (CKD-EPI)AfAm (>60 ml/min/1.73 sqM) Est GFR (CKD-EPI)NonAf (>60 ml/min/1.73 sqM) Glucose (74-99) mg/dL POC Glucose (mg/dL) (70-110) mg/dL POC Glu Project Manager Process Development ID Lactic Ac Sepsis Rflx Plasma Lactic Acid Tomasz (0.7-2.0) mmol/L Calcium (8.4-10.2) mg/dL Magnesium 2.2 (1.6-2.3) mg/dL Total Bilirubin (0.2-1.3) mg/dL AST (17-59) U/L ALT (4-49) U/L Alkaline Phosphatase (38-126) U/L Troponin I (0.000-0.034) ng/mL NT-Pro-B Natriuret Pep pg/mL Total Protein (6.3-8.2) g/dL Albumin (3.5-5.0) g/dL Urine Color Urine Appearance (Clear) Urine pH (5.0-8.0) Ur Specific [place] (1.001-1.035) Urine Protein (Negative) Urine Glucose (UA) (Negative) Urine Ketones (Negative) Urine Blood (Negative) Urine Nitrite (Negative) Urine Bilirubin (Negative) Urine Urobilinogen (<2.0) mg/dL Ur Leukocyte Esterase (Negative) Urine RBC (0-5) /hpf Urine WBC (0-5) /hpf Ur Squamous Epith Cells (0-4) /hpf Hyaline Casts (0-2) /lpf Urine Mucus (None) /hpf Urine Opiates Screen (NotDetected) Ur Oxycodone Screen (NotDetected) Urine Methadone Screen (NotDetected) Ur Barbiturates Screen (NotDetected) U Tricyclic Antidepress (NotDetected) Ur Phencyclidine Scrn (NotDetected) Ur Amphetamines Screen (NotDetected) U Methamphetamines Scrn (NotDetected) U Benzodiazepines Scrn (NotDetected) Urine Cocaine Screen (NotDetected) U Marijuana (THC) Screen (NotDetected) Serum Alcohol mg/dL Influenza Type A (PCR) (Not Detectd) Influenza Type B (PCR) (Not Detectd) RSV (PCR) (Not Detectd) SARS-CoV-2 (PCR) (Not Detectd) 05/13/24 05/13/24 05/13/24 Range/Units 20:49 21:40 22:36 WBC (3.8-10.6) k/uL RBC (4.30-5.90) m/uL Hgb (13.0-17.5) gm/dL Hct (39.0-53.0) % MCV (80.0-100.0) fL MCH (25.0-35.0) pg MCHC (31.0-37.0) g/dL RDW (11.5-15.5) % Plt Count (150-450) k/uL MPV Neutrophils % Neutrophils % (Manual) % Band Neuts % (Manual) % Lymphocytes % Lymphocytes % (Manual) % Monocytes % Monocytes % (Manual) % Eosinophils % Eosinophils % (Manual) % Basophils % Neutrophils # Neutrophils # (Manual) (1.3-7.7) k/uL Lymphocytes # Lymphocytes # (Manual) (1.0-4.8) k/uL Monocytes # Monocytes # (Manual) (0-1.0) k/uL Eosinophils # Eosinophils # (Manual) (0-0.7) k/uL Basophils # Nucleated RBCs (0-0) /100 WBC Manual Slide Review Hypochromasia Hypochromasia (manual) Macrocytosis PT (10.0-12.5) sec INR (<1.2) APTT (22.0-30.0) sec D-Dimer (<0.60) mg/L FEU Sample Site ABG pH (7.35-7.45) ABG pCO2 (35-45) mmHg ABG pO2 (83-108) mmHg ABG HCO3 (21-25) mmol/L ABG Total CO2 (19-24) mmol/L ABG O2 Saturation (94-97) % ABG Base Excess mmol/L Amrit Test FiO2 % Sodium (137-145) mmol/L Potassium (3.5-5.1) mmol/L Chloride (98-107) mmol/L Carbon Dioxide (22-30) mmol/L Anion Gap mmol/L BUN (9-20) mg/dL Creatinine (0.66-1.25) mg/dL Est GFR (CKD-EPI)AfAm (>60 ml/min/1.73 sqM) Est GFR (CKD-EPI)NonAf (>60 ml/min/1.73 sqM) Glucose (74-99) mg/dL POC Glucose (mg/dL) (70-110) mg/dL POC Glu Project Manager Process Development ID Lactic Ac Sepsis Rflx Y Plasma Lactic Acid Tomasz 4.0 H* (0.7-2.0) mmol/L Calcium (8.4-10.2) mg/dL Magnesium (1.6-2.3) mg/dL Total Bilirubin (0.2-1.3) mg/dL AST (17-59) U/L ALT (4-49) U/L Alkaline Phosphatase (38-126) U/L Troponin I (0.000-0.034) ng/mL NT-Pro-B Natriuret Pep pg/mL Total Protein (6.3-8.2) g/dL Albumin (3.5-5.0) g/dL Urine Color Urine Appearance (Clear) Urine pH (5.0-8.0) Ur Specific [place] (1.001-1.035) Urine Protein (Negative) Urine Glucose (UA) (Negative) Urine Ketones (Negative) Urine Blood (Negative) Urine Nitrite (Negative) Urine Bilirubin (Negative) Urine Urobilinogen (<2.0) mg/dL Ur Leukocyte Esterase (Negative) Urine RBC (0-5) /hpf Urine WBC (0-5) /hpf Ur Squamous Epith Cells (0-4) /hpf Hyaline Casts (0-2) /lpf Urine Mucus (None) /hpf Urine Opiates Screen (NotDetected) Ur Oxycodone Screen (NotDetected) Urine Methadone Screen (NotDetected) Ur Barbiturates Screen (NotDetected) U Tricyclic Antidepress (NotDetected) Ur Phencyclidine Scrn (NotDetected) Ur Amphetamines Screen (NotDetected) U Methamphetamines Scrn (NotDetected) U Benzodiazepines Scrn (NotDetected) Urine Cocaine Screen (NotDetected) U Marijuana (THC) Screen (NotDetected) Serum Alcohol mg/dL Influenza Type A (PCR) Not Detected (Not Detectd) Influenza Type B (PCR) Not Detected (Not Detectd) RSV (PCR) Not Detected (Not Detectd) SARS-CoV-2 (PCR) Not Detected (Not Detectd) - EKG Data -: EKG Interpreted by Me EKG Comments: 12-lead Electrocardiogram Interpretation Note EKG was reviewed and interpreted by myself. 12-lead ECG performed at 1732 is interpreted by me as revealing sinus rhythm into ventricular fibrillation at a rate of 137 beats per minute. Abnormal axis. Patient has some QRS fractionation. Somewhat generalized ischemic changes present likely secondary to postresuscitation 12-lead Electrocardiogram Interpretation Note Post ROSC EKG. EKG was reviewed and interpreted by myself. 12-lead ECG performed at 1742 is interpreted by me as revealing atrial fibrillation at a rate of 84 beats per minute. Indeterminate axis with right bundle branch block QRS fractionation present. Left posterior fascicular block present. Somewhat generalized ischemic changes present likely secondary to postresuscitation 12-lead Electrocardiogram Interpretation Note Post ROSC EKG. EKG was reviewed and interpreted by myself. 12-lead ECG performed at 1748 is interpreted by me as revealing atrial fibrillation at a rate of 52 beats per minute. Atypical axis. Left posterior fascicular block. QRS fractionation redemonstrated.. Somewhat generalized ischemic changes present likely secondary to postresuscitation 12-lead Electrocardiogram Interpretation Note Post ROSC EKG .EKG was reviewed and interpreted by myself. 12-lead ECG performed at 1757 is interpreted by me as revealing atrial fibrillation with a right bundle branch block and left posterior fascicular block at a rate of 91 beats per minute. Indeterminate axis. QRS duration is 223 ms, QTc is 509 ms. QRS fractionation redemonstrated.... Somewhat generalized ischemic changes present likely secondary to postresuscitation 12-lead Electrocardiogram Interpretation Note EKG was reviewed and interpreted by myself. 12-lead ECG performed at 1941 is interpreted by me as revealing normal sinus rhythm with PVCs at a rate of 84 beats per minute. [place] is rightward deviated. Parable is 188 ms, QRS duration is 162 ms, QTc is 467 ms.. QRS fractionation once again redemonstrated.. R wave progression across the precordium was satisfactory. By my interpretation this EKG is non-diagnostic for acute ischemia. Changes suggestive of significantly started scarred left ventricle after review with cardiology Dr. Mcconnell. . Critical Care Time Critical Care Time: Yes Total Critical Care Time: 76 Disposition Clinical Impression: Cardiac arrest, Cardiomyopathy, Pneumonia, Cardiogenic shock, Hypoxic respiratory failure, Rib fractures Disposition: OTHER INSTITUTION NOT DEFINED Condition: Serious Referrals: None,Stated [Primary Care Provider] - 1-2 days Time of Disposition: 20:40 - Out of Hospital Transfer - Req. Specs Out of Hospital Transfer - Requested Specifics: Intensive Care Unit (Transferred to [facility] ICU for further care and evaluation by their cardiology services over concern for need for cardiac transplant due to cardiomyopathy)
[2024-05-13] MEDS: PIPERACILLIN-TAZOBACTAM 3.375 GM in SODIUM CHLORIDE 0.9% 100 ML IVPB STA (20:48)
[2024-05-13] MEDS: AZITHROMYCIN 500 MG in SODIUM CHLORIDE 0.9% 250 ML IVPB STA (20:48)
[2024-05-13] MEDS: MAGNESIUM SULFATE-D5W PMX 1 GM in DEXTROSE/WATER 1 100ML.BAG IVPB ONE (20:53)
[2024-05-13 22:34] VITALS: TEMP 100
[2024-05-13] MEDS: MIDAZOLAM 2 MG/2 ML VIAL IV ONE (22:41)
[2024-05-13 23:16] VITALS: BP 101/60; PULSE 89; RESP 25
[2024-05-13] MEDS: AMIODARONE 450 MG in DEXTROSE 5% IN WATER 250 ML IV SCH (23:19)
--- NOTE | 2024-05-14 01:44 | ED ---
Medical Decision Making - Medical Decision Making Patient intubated with ET tube placed by EMS. Is confirmed in satisfactory position on Chest xray and exam, although it was advanced 2cm. Was not replaced as it is functioning appropriately. - Lab Data Result diagrams: 05/13/24 17:30 05/13/24 17:30 Lab Results 05/13/24 05/13/24 05/13/24 Range/Units 17:30 17:30 17:30 WBC 15.4 H (3.8-10.6) k/uL RBC 4.27 L (4.30-5.90) m/uL Hgb 14.1 (13.0-17.5) gm/dL Hct 45.2 (39.0-53.0) % MCV 105.7 H (80.0-100.0) fL MCH 32.9 (25.0-35.0) pg MCHC 31.1 (31.0-37.0) g/dL RDW 13.0 (11.5-15.5) % Plt Count 429 (150-450) k/uL MPV 8.6 Neutrophils % Not Reportable Neutrophils % (Manual) 46 % Band Neuts % (Manual) 1 % Lymphocytes % Not Reportable Lymphocytes % (Manual) 44 % Monocytes % Not Reportable Monocytes % (Manual) 8 % Eosinophils % Not Reportable Eosinophils % (Manual) 1 % Basophils % Not Reportable Neutrophils # Not Reportable Neutrophils # (Manual) 7.20 (1.3-7.7) k/uL Lymphocytes # Not Reportable Lymphocytes # (Manual) 6.78 H (1.0-4.8) k/uL Monocytes # Not Reportable Monocytes # (Manual) 1.23 H (0-1.0) k/uL Eosinophils # Not Reportable Eosinophils # (Manual) 0.15 (0-0.7) k/uL Basophils # Not Reportable Nucleated RBCs 0 (0-0) /100 WBC Manual Slide Review Performed Hypochromasia Marked Hypochromasia (manual) Present Macrocytosis Slight PT (10.0-12.5) sec INR (<1.2) APTT (22.0-30.0) sec D-Dimer (<0.60) mg/L FEU Sample Site ABG pH (7.35-7.45) ABG pCO2 (35-45) mmHg ABG pO2 (83-108) mmHg ABG HCO3 (21-25) mmol/L ABG Total CO2 (19-24) mmol/L ABG O2 Saturation (94-97) % ABG Base Excess mmol/L Amrit Test FiO2 % Sodium 141 (137-145) mmol/L Potassium 5.3 H (3.5-5.1) mmol/L Chloride 104 (98-107) mmol/L Carbon Dioxide 12 L (22-30) mmol/L Anion Gap 25 mmol/L BUN 16 (9-20) mg/dL Creatinine 1.73 H (0.66-1.25) mg/dL Est GFR (CKD-EPI)AfAm 56 (>60 ml/min/1.73 sqM) Est GFR (CKD-EPI)NonAf 49 (>60 ml/min/1.73 sqM) Glucose 438 H (74-99) mg/dL POC Glucose (mg/dL) (70-110) mg/dL POC Glu Claims Vice President ID Lactic Ac Sepsis Rflx Plasma Lactic Acid Tomasz (0.7-2.0) mmol/L Calcium 11.7 H (8.4-10.2) mg/dL Magnesium (1.6-2.3) mg/dL Total Bilirubin 0.8 (0.2-1.3) mg/dL AST 75 H (17-59) U/L ALT 69 H (4-49) U/L Alkaline Phosphatase 45 (38-126) U/L Troponin I 0.013 (0.000-0.034) ng/mL NT-Pro-B Natriuret Pep 697 pg/mL Total Protein 6.5 (6.3-8.2) g/dL Albumin 3.9 (3.5-5.0) g/dL Urine Color Urine Appearance (Clear) Urine pH (5.0-8.0) Ur Specific [place] (1.001-1.035) Urine Protein (Negative) Urine Glucose (UA) (Negative) Urine Ketones (Negative) Urine Blood (Negative) Urine Nitrite (Negative) Urine Bilirubin (Negative) Urine Urobilinogen (<2.0) mg/dL Ur Leukocyte Esterase (Negative) Urine RBC (0-5) /hpf Urine WBC (0-5) /hpf Ur Squamous Epith Cells (0-4) /hpf Hyaline Casts (0-2) /lpf Urine Mucus (None) /hpf Urine Opiates Screen (NotDetected) Ur Oxycodone Screen (NotDetected) Urine Methadone Screen (NotDetected) Ur Barbiturates Screen (NotDetected) U Tricyclic Antidepress (NotDetected) Ur Phencyclidine Scrn (NotDetected) Ur Amphetamines Screen (NotDetected) U Methamphetamines Scrn (NotDetected) U Benzodiazepines Scrn (NotDetected) Urine Cocaine Screen (NotDetected) U Marijuana (THC) Screen (NotDetected) Serum Alcohol <10 mg/dL Influenza Type A (PCR) (Not Detectd) Influenza Type B (PCR) (Not Detectd) RSV (PCR) (Not Detectd) SARS-CoV-2 (PCR) (Not Detectd) 05/13/24 05/13/24 05/13/24 Range/Units 17:30 18:09 18:20 WBC (3.8-10.6) k/uL RBC (4.30-5.90) m/uL Hgb (13.0-17.5) gm/dL Hct (39.0-53.0) % MCV (80.0-100.0) fL MCH (25.0-35.0) pg MCHC (31.0-37.0) g/dL RDW (11.5-15.5) % Plt Count (150-450) k/uL MPV Neutrophils % Neutrophils % (Manual) % Band Neuts % (Manual) % Lymphocytes % Lymphocytes % (Manual) % Monocytes % Monocytes % (Manual) % Eosinophils % Eosinophils % (Manual) % Basophils % Neutrophils # Neutrophils # (Manual) (1.3-7.7) k/uL Lymphocytes # Lymphocytes # (Manual) (1.0-4.8) k/uL Monocytes # Monocytes # (Manual) (0-1.0) k/uL Eosinophils # Eosinophils # (Manual) (0-0.7) k/uL Basophils # Nucleated RBCs (0-0) /100 WBC Manual Slide Review Hypochromasia Hypochromasia (manual) Macrocytosis PT (10.0-12.5) sec INR (<1.2) APTT (22.0-30.0) sec D-Dimer (<0.60) mg/L FEU Sample Site ABG pH (7.35-7.45) ABG pCO2 (35-45) mmHg ABG pO2 (83-108) mmHg ABG HCO3 (21-25) mmol/L ABG Total CO2 (19-24) mmol/L ABG O2 Saturation (94-97) % ABG Base Excess mmol/L Amrit Test FiO2 % Sodium (137-145) mmol/L Potassium (3.5-5.1) mmol/L Chloride (98-107) mmol/L Carbon Dioxide (22-30) mmol/L Anion Gap mmol/L BUN (9-20) mg/dL Creatinine (0.66-1.25) mg/dL Est GFR (CKD-EPI)AfAm (>60 ml/min/1.73 sqM) Est GFR (CKD-EPI)NonAf (>60 ml/min/1.73 sqM) Glucose (74-99) mg/dL POC Glucose (mg/dL) 382 H (70-110) mg/dL POC Glu Claims Vice President ID Celestino Carson Lactic Ac Sepsis Rflx Plasma Lactic Acid Tomasz 14.8 H* (0.7-2.0) mmol/L Calcium (8.4-10.2) mg/dL Magnesium (1.6-2.3) mg/dL Total Bilirubin (0.2-1.3) mg/dL AST (17-59) U/L ALT (4-49) U/L Alkaline Phosphatase (38-126) U/L Troponin I (0.000-0.034) ng/mL NT-Pro-B Natriuret Pep pg/mL Total Protein (6.3-8.2) g/dL Albumin (3.5-5.0) g/dL Urine Color Yellow Urine Appearance Cloudy (Clear) Urine pH 6.0 (5.0-8.0) Ur Specific [place] 1.028 (1.001-1.035) Urine Protein 2+ H (Negative) Urine Glucose (UA) Negative (Negative) Urine Ketones Negative (Negative) Urine Blood Moderate H (Negative) Urine Nitrite Negative (Negative) Urine Bilirubin Negative (Negative) Urine Urobilinogen <2.0 (<2.0) mg/dL Ur Leukocyte Esterase Negative (Negative) Urine RBC 93 H (0-5) /hpf Urine WBC 9 H (0-5) /hpf Ur Squamous Epith Cells 1 (0-4) /hpf Hyaline Casts 21 H (0-2) /lpf Urine Mucus Many H (None) /hpf Urine Opiates Screen Not Detected (NotDetected) Ur Oxycodone Screen Not Detected (NotDetected) Urine Methadone Screen Not Detected (NotDetected) Ur Barbiturates Screen Not Detected (NotDetected) U Tricyclic Antidepress Not Detected (NotDetected) Ur Phencyclidine Scrn Not Detected (NotDetected) Ur Amphetamines Screen Detected H (NotDetected) U Methamphetamines Scrn Not Detected (NotDetected) U Benzodiazepines Scrn Detected H (NotDetected) Urine Cocaine Screen Not Detected (NotDetected) U Marijuana (THC) Screen Detected H (NotDetected) Serum Alcohol mg/dL Influenza Type A (PCR) (Not Detectd) Influenza Type B (PCR) (Not Detectd) RSV (PCR) (Not Detectd) SARS-CoV-2 (PCR) (Not Detectd) 05/13/24 05/13/24 05/13/24 Range/Units 18:20 19:30 20:49 WBC (3.8-10.6) k/uL RBC (4.30-5.90) m/uL Hgb (13.0-17.5) gm/dL Hct (39.0-53.0) % MCV (80.0-100.0) fL MCH (25.0-35.0) pg MCHC (31.0-37.0) g/dL RDW (11.5-15.5) % Plt Count (150-450) k/uL MPV Neutrophils % Neutrophils % (Manual) % Band Neuts % (Manual) % Lymphocytes % Lymphocytes % (Manual) % Monocytes % Monocytes % (Manual) % Eosinophils % Eosinophils % (Manual) % Basophils % Neutrophils # Neutrophils # (Manual) (1.3-7.7) k/uL Lymphocytes # Lymphocytes # (Manual) (1.0-4.8) k/uL Monocytes # Monocytes # (Manual) (0-1.0) k/uL Eosinophils # Eosinophils # (Manual) (0-0.7) k/uL Basophils # Nucleated RBCs (0-0) /100 WBC Manual Slide Review Hypochromasia Hypochromasia (manual) Macrocytosis PT 12.7 H (10.0-12.5) sec INR 1.2 H (<1.2) APTT 28.2 (22.0-30.0) sec D-Dimer 28.75 H (<0.60) mg/L FEU Sample Site R radial ABG pH 7.21 L (7.35-7.45) ABG pCO2 48 H (35-45) mmHg ABG pO2 170 H (83-108) mmHg ABG HCO3 19 L (21-25) mmol/L ABG Total CO2 21 (19-24) mmol/L ABG O2 Saturation 99.4 H (94-97) % ABG Base Excess -8.7 mmol/L Amrit Test Yes FiO2 100 % Sodium (137-145) mmol/L Potassium (3.5-5.1) mmol/L Chloride (98-107) mmol/L Carbon Dioxide (22-30) mmol/L Anion Gap mmol/L BUN (9-20) mg/dL Creatinine (0.66-1.25) mg/dL Est GFR (CKD-EPI)AfAm (>60 ml/min/1.73 sqM) Est GFR (CKD-EPI)NonAf (>60 ml/min/1.73 sqM) Glucose (74-99) mg/dL POC Glucose (mg/dL) (70-110) mg/dL POC Glu Claims Vice President ID Lactic Ac Sepsis Rflx Plasma Lactic Acid Tomasz (0.7-2.0) mmol/L Calcium (8.4-10.2) mg/dL Magnesium 2.2 (1.6-2.3) mg/dL Total Bilirubin (0.2-1.3) mg/dL AST (17-59) U/L ALT (4-49) U/L Alkaline Phosphatase (38-126) U/L Troponin I (0.000-0.034) ng/mL NT-Pro-B Natriuret Pep pg/mL Total Protein (6.3-8.2) g/dL Albumin (3.5-5.0) g/dL Urine Color Urine Appearance (Clear) Urine pH (5.0-8.0) Ur Specific [place] (1.001-1.035) Urine Protein (Negative) Urine Glucose (UA) (Negative) Urine Ketones (Negative) Urine Blood (Negative) Urine Nitrite (Negative) Urine Bilirubin (Negative) Urine Urobilinogen (<2.0) mg/dL Ur Leukocyte Esterase (Negative) Urine RBC (0-5) /hpf Urine WBC (0-5) /hpf Ur Squamous Epith Cells (0-4) /hpf Hyaline Casts (0-2) /lpf Urine Mucus (None) /hpf Urine Opiates Screen (NotDetected) Ur Oxycodone Screen (NotDetected) Urine Methadone Screen (NotDetected) Ur Barbiturates Screen (NotDetected) U Tricyclic Antidepress (NotDetected) Ur Phencyclidine Scrn (NotDetected) Ur Amphetamines Screen (NotDetected) U Methamphetamines Scrn (NotDetected) U Benzodiazepines Scrn (NotDetected) Urine Cocaine Screen (NotDetected) U Marijuana (THC) Screen (NotDetected) Serum Alcohol mg/dL Influenza Type A (PCR) (Not Detectd) Influenza Type B (PCR) (Not Detectd) RSV (PCR) (Not Detectd) SARS-CoV-2 (PCR) (Not Detectd) 05/13/24 05/13/24 05/13/24 Range/Units 20:49 21:40 22:36 WBC (3.8-10.6) k/uL RBC (4.30-5.90) m/uL Hgb (13.0-17.5) gm/dL Hct (39.0-53.0) % MCV (80.0-100.0) fL MCH (25.0-35.0) pg MCHC (31.0-37.0) g/dL RDW (11.5-15.5) % Plt Count (150-450) k/uL MPV Neutrophils % Neutrophils % (Manual) % Band Neuts % (Manual) % Lymphocytes % Lymphocytes % (Manual) % Monocytes % Monocytes % (Manual) % Eosinophils % Eosinophils % (Manual) % Basophils % Neutrophils # Neutrophils # (Manual) (1.3-7.7) k/uL Lymphocytes # Lymphocytes # (Manual) (1.0-4.8) k/uL Monocytes # Monocytes # (Manual) (0-1.0) k/uL Eosinophils # Eosinophils # (Manual) (0-0.7) k/uL Basophils # Nucleated RBCs (0-0) /100 WBC Manual Slide Review Hypochromasia Hypochromasia (manual) Macrocytosis PT (10.0-12.5) sec INR (<1.2) APTT (22.0-30.0) sec D-Dimer (<0.60) mg/L FEU Sample Site ABG pH (7.35-7.45) ABG pCO2 (35-45) mmHg ABG pO2 (83-108) mmHg ABG HCO3 (21-25) mmol/L ABG Total CO2 (19-24) mmol/L ABG O2 Saturation (94-97) % ABG Base Excess mmol/L Amrit Test FiO2 % Sodium (137-145) mmol/L Potassium (3.5-5.1) mmol/L Chloride (98-107) mmol/L Carbon Dioxide (22-30) mmol/L Anion Gap mmol/L BUN (9-20) mg/dL Creatinine (0.66-1.25) mg/dL Est GFR (CKD-EPI)AfAm (>60 ml/min/1.73 sqM) Est GFR (CKD-EPI)NonAf (>60 ml/min/1.73 sqM) Glucose (74-99) mg/dL POC Glucose (mg/dL) (70-110) mg/dL POC Glu Claims Vice President ID Lactic Ac Sepsis Rflx Y Plasma Lactic Acid Tomasz 4.0 H* (0.7-2.0) mmol/L Calcium (8.4-10.2) mg/dL Magnesium (1.6-2.3) mg/dL Total Bilirubin (0.2-1.3) mg/dL AST (17-59) U/L ALT (4-49) U/L Alkaline Phosphatase (38-126) U/L Troponin I (0.000-0.034) ng/mL NT-Pro-B Natriuret Pep pg/mL Total Protein (6.3-8.2) g/dL Albumin (3.5-5.0) g/dL Urine Color Urine Appearance (Clear) Urine pH (5.0-8.0) Ur Specific [place] (1.001-1.035) Urine Protein (Negative) Urine Glucose (UA) (Negative) Urine Ketones (Negative) Urine Blood (Negative) Urine Nitrite (Negative) Urine Bilirubin (Negative) Urine Urobilinogen (<2.0) mg/dL Ur Leukocyte Esterase (Negative) Urine RBC (0-5) /hpf Urine WBC (0-5) /hpf Ur Squamous Epith Cells (0-4) /hpf Hyaline Casts (0-2) /lpf Urine Mucus (None) /hpf Urine Opiates Screen (NotDetected) Ur Oxycodone Screen (NotDetected) Urine Methadone Screen (NotDetected) Ur Barbiturates Screen (NotDetected) U Tricyclic Antidepress (NotDetected) Ur Phencyclidine Scrn (NotDetected) Ur Amphetamines Screen (NotDetected) U Methamphetamines Scrn (NotDetected) U Benzodiazepines Scrn (NotDetected) Urine Cocaine Screen (NotDetected) U Marijuana (THC) Screen (NotDetected) Serum Alcohol mg/dL Influenza Type A (PCR) Not Detected (Not Detectd) Influenza Type B (PCR) Not Detected (Not Detectd) RSV (PCR) Not Detected (Not Detectd) SARS-CoV-2 (PCR) Not Detected (Not Detectd) Disposition Clinical Impression: Cardiac arrest, Cardiomyopathy, Pneumonia, Cardiogenic shock, Hypoxic respiratory failure, Rib fractures, Ventricular fibrillation Disposition: OTHER INSTITUTION NOT DEFINED Condition: Serious Referrals: None,Stated [Primary Care Provider] - 1-2 days - Out of Hospital Transfer - Req. Specs Out of Hospital Transfer - Requested Specifics: Intensive Care Unit (Transferred to [facility] for escalation of care for cardiomyopathy and cardiac arrest with refractory vfib.) Procedures - Central Line Placement Right Femoral Consent Obtained: emergent situation Patient Placed on Monitor/Pulse Ox: Yes MD Prep: mask, gown, gloves Central Line Prep: Chlorhexidine scrub Local Anesthesia Used: Lidocaine 1% Amount of Anesthesia Used (mls): 3 Ultrasound Used for Placement: Yes Central Line Lumen Inserted: triple Central Line Position: good blood return, all ports aspirated, flushed, capped, sutured in place with nylon Dressing Applied: Tegaderm Patient Tolerated Procedure: well Complications: none
== END 2024-05-13 23:17 | disposition other institution (70) ==
LOC: EC 17:31
DX: S22.49XA Multiple fractures of ribs, unspecified side, initial encounter for closed fracture (principal); I46.9 Cardiac arrest, cause unspecified; I42.9 Cardiomyopathy, unspecified; J18.9 Pneumonia, unspecified organism; J96.91 Respiratory failure, unspecified with hypoxia; R57.0 Cardiogenic shock; X58.XXXA Exposure to other specified factors, initial encounter
CPT/HCPCS: 96366 ×5; 96376 ×3; 96368 ×2; 96365 ×2; 96375 ×2; 99291 ×2; 99292 ×2; 36556 ×2; 36415; 36600; 94002; 92950; 93005; 85379; 83880; 80053; 87449; 82805; 83605; 83735; 84484; 85025; 85610; 85730; 81001; 87040; 80306; 80320; 87636; 71045; 70450; 71275; 74177; J2543; J2250; J0456; J3475; J0282; J2704; Q9967